=== PATIENT | female | born 1990 | race African-American/Black ===

== ENCOUNTER 2023-12-19 14:24 | Emergency (ER) | payer SELFPAY ==
--- NOTE | 2023-12-19 14:26 | XRR_ITS ---
PROCEDURE INFORMATION: Exam: XR Right Foot Exam date and time: 12/19/2023 2:42 PM Age: 33 years old Clinical indication: Right; Patient HX: Worsening RT foot pain/swelling x 2 days; No known injury; PT states she thinks she May have been bitten by a spider, but has no wound. TECHNIQUE: Imaging protocol: Radiologic exam of the right foot. Views: 3 or more views. COMPARISON: No relevant prior studies available. FINDINGS: Bones/joints: No acute fracture or dislocation. No ankle joint effusion. No suspicious osseous lesion. Soft tissues: No radiopaque foreign body. Soft swelling surrounding the metatarsophalangeal joints. XR/XR foot RT min 3V* [id number] IMPRESSION: No acute fracture or dislocation. No radiopaque foreign body.
[2023-12-19 15:06] VITALS: BP 133/88; PULSE 61; RESP 16; TEMP 36.8; O2SAT 98; BMI 33.1
--- NOTE | 2023-12-19 15:29 | W.ED.ANIMALB ---
HPI - Animal Bite General: Chief Complaint: Animal Bite Stated Complaint: Right foot injury Time Seen by Provider: 12/19/23 15:26 History of Present Illness: 33-year-old female comes in today with swelling and tenderness to the right foot. Patient reports noticing symptoms starting on Wednesday when she had some tenderness to the foot. Patient did not know if she was bit by something or what is causing the symptoms. Patient denies diabetes mellitus. Patient reports no routine medicines. Patient does report lupus. Related Data Previous Rx's Medication Instructions Recorded amoxicillin 875 mg-potassium 1 tab PO BID #20 tabs 12/19/23 clavulanate 125 mg tablet hydrocodone 5 mg-acetaminophen 325 1 tab PO Q8H PRN pain #7 tabs 12/19/23 mg tablet Allergies Allergy/AdvReac Type Severity Reaction Status Date / Time Cephalosporins Allergy ALGY-Anaphy Verified 12/19/23 15:14 laxis metoclopramide [From Reglan] Allergy ALGY-Hives Verified 12/19/23 15:14 nut - unspecified Allergy ALGY-Anaphy Verified 12/19/23 15:14 laxis Review of Systems General: Reports: 10 or more systems reviewed and unremarkable except in HPI and below Musc: Reports: extremity pain and extremity swelling [facility] ED Female Reproductive History: Date of last menstrual period: 12/12/23 Physical Exam Const: COMMON NORMALS: alert HENMT: COMMON NORMALS: normocephalic HEAD & SCALP: normocephalic Neck/C-Spine: COMMON NORMALS: full ROM Resp: COMMON NORMALS: normal respiratory effort Cardio: COMMON NORMALS: regular rate RATE: regular rate Back/Pelvis: COMMON NORMALS: thoracic and lumbar spine normal to inspection Extremity: RIGHT LOWER EXTREMITY: Yes foot & digits (Inflammation and swelling to the distal midfoot.) Right foot and digits: Yes inspection, Yes palpation, Yes ROM and Yes neurovascular exam Neuro: SENSORIUM/ORIENTATION: Yes alert Skin: NARRATIVE SKIN EXAM: Redness and inflammation noted to the distal midfoot. Maceration of skin tissue is noted between the second and third digit. Course Vital Signs: Vital signs: Vital Signs Temperature 98.2 F 12/19/23 15:06 Pulse Rate 61 12/19/23 15:06 Respiratory Rate 16 12/19/23 15:06 Blood Pressure 133/88 09/01/24 15:06 Pulse Oximetry 98 12/19/23 15:06 Oxygen Delivery Me thod Room Air 12/19/23 15:06 MDM - Animal Bite Medical Decision Making Patient comes in today for complaints of pain to the right foot. On exam patient has swelling and redness noted to the midfoot. Patient has some mild maceration of the tissue between the second and third digits of the toe. Differential diagnosis could be intertrigo, cellulitis, localized reaction to insect bite, fracture. X-rays showed no sign of fracture or bony abnormality. Believe patient most likely has some cellulitis secondary to intertrigo. Patient will be started on Augmentin and recommended to elevate and keep the foot clean and dry. Patient and family both reported understanding of care plan and need for follow-up or return to the ER. Lab Data Radiology Impressions Foot X-Ray 12/19/23 14:26 IMPRESSION: No acute fracture or dislocation. No radiopaque foreign body. All radiology interpretation(s) finalized by discharge Discharge Plan Discharge Patient Disposition: Home Clinical Impression: Cellulitis of foot Condition: Stable Prescriptions: New amoxicillin-pot clavulanate 875-125 mg tablet 1 tab PO BID Qty: 20 0RF hydrocodone-acetaminophen 5-325 mg tablet 1 tab PO Q8H PRN (Reason: pain) Qty: 7 0RF Discharge Orders: Discharge ED (Routine); Ordered 12/19/23 Ordered By: Aroldo Alvarez Patient Instructions: Opioid Safety, Pain Management Coding Level of Care Code ED Senior Product Development Manager for Kailee Kang
[2023-12-19] MEDS: amoxicillin-clav 875-125 mg Tablet 1 TAB PO (16:00)
[2023-12-19] MEDS: HYDROcodone-acetaminophen 5-325 mg Tablet 1 TAB PO (16:00)
[2023-12-19 16:12] VITALS: BP 129/89; PULSE 59; RESP 16; TEMP 36.8; O2SAT 99
== END 2023-12-19 16:03 | disposition home or self-care (01) ==
PROVIDERS: Emergency Provider Nurse Practitioner Family
DX: L03.115 Cellulitis of right lower limb (principal)
CPT/HCPCS: 73630; 99283